=== PATIENT | male | born 1970 | race Caucasian/White ===

== ENCOUNTER 2020-03-09 08:47 | Emergency (ER) | payer BC, SELFPAY ==
[2020-03-09 09:04] VITALS: BP 125/76; PULSE 67; RESP 16; TEMP 36.6; O2SAT 100
--- NOTE | 2020-03-09 09:49 | ED.GENADULT ---
HPI - General Adult General Chief complaint: Eye Problems Stated complaint: eye problems Time Seen by Provider: 03/09/20 09:44 Source: patient and RN notes reviewed Mode of arrival: ambulatory Limitations: no limitations History of Present Illness HPI narrative: 49-year-old male presents with complaints of left eye redness, irritation, and itching for the past 2 days. [facility] irritated eye drops with little relief. Slightly matted. No pain. No copious drainage. Exacerbating factors is opening eye. Relieving factors is closing eyes. No blurred vision, double vision, sensation of foreign body, or pain of eye with movement. Denies fever, chills, headaches, weakness, fatigue, myalgia, or facial swelling. Denies chest pain or dyspnea. Denies cough, rhinorrhea, congestion, sore throat, nausea, vomiting, abdominal pain, and diarrhea. Tolerating po intake well. Denies recent traveling. Denies concern for COVID-19 or exposures been home since [id number] order except for essential household needs, working, and return home. Some parts of this dictation were generated by voice recognition software and may contain typographical and/or grammatical inaccuracies. Related Data Home Medications Medication Instructions Recorded Confirmed levothyroxine 03/09/20 Allergies Allergy/AdvReac Type Severity Reaction Status Date / Time No Known Allergies Allergy Unverified 04/23/12 13:44 Review of Systems Review of Systems: Narrative: CONSTITUTIONAL: Denies fever, chills, sweats. EYES: Denies visual changes. Complains of LT eye redness, itching, and irritation. ENT: Denies rhinorrhea, congestion, sore throat, otalgia. CARDIOVASCULAR: Denies chest pain, palpitations, edema. RESPIRATORY: Denies dyspnea, wheezing, cough. GASTROINTESTINAL: Denies abdominal pain, nausea, vomiting, diarrhea. GENITOURINARY: Denies dysuria, hematuria, abnormal discharge. SKIN: Denies rash or itching. MUSCULOSKELETAL: Denies acute back pain, joint pain, or myalgia. NEUROLOGIC: Denies numbness or focal weakness. PSYCHIATRIC: Denies anxiety or depression. All systems reviewed & are unremarkable except as noted in HPI and below. PENDING SALE TO [facility] Past Medical History Medical History (Updated 03/10/20 @ 00:00 by Background Daemon) Hernia Hypothyroidism Surgical History Surgical History (Updated 03/09/20 @ 09:55 by JONAS Castro) H/O right inguinal hernia repair Family History Family History (Updated 03/09/20 @ 09:59 by JONAS Castro) Father Lung cancer Mother Alive and well Social History Social History (Updated 03/09/20 @ 10:05 by JONAS Castro) Smoking status: Former smoker Second hand tobacco smoke exposure: No Alcohol intake: current Substance use: never Living arrangements: with family Occupation/Education: occupation Gender identity (if verbalized by the patient): Male Comments At time of signature, agree with nurse past medical, surgical, social, and family history. There is no relevant family history pertinent to the presenting complaint. Exam Narrative: Exam Narrative: GENERAL: This is a well-nourished, well-developed patient, in no apparent distress. HEAD: normocephalic, atraumatic. EYES: PERRL. Sclera clear/white to RT eye only. LT eye sclera fran and clear, no swelling, no tenderness on palpation. Vision is grossly intact. No visible or palpable Hordeolum present, no drainable abscess. No foreign body or lesions were noted on eversion of upper eyelid. No concern for Vannessa-orbital cellulitis or orbital cellulitis. EARS: External ears normal, auditory canals clear and without drainage, TMs normal without perforation. Hearing grossly intact. NOSE: External nose normal with no obvious nasal discharge, nares with mild-moderate redness and turbinate, no rhinorrhea. THROAT: Mucous membranes moist, posterior pharynx without PND, no erythema, no exudate, and normal tonsils. No
== END 2020-03-09 10:03 | disposition home or self-care (01) ==
PROVIDERS: Emergency Provider Nurse Practitioner Family; PCP Internal Medicine
DX: H10.32 Unspecified acute conjunctivitis, left eye (principal); E03.9 Hypothyroidism, unspecified; Z87.891 Personal history of nicotine dependence
CPT/HCPCS: 99213; G0463